=== PATIENT | female | born 1950 | race Caucasian/White ===

== ENCOUNTER 2016-05-01 11:33 | Outpatient (CLI) | payer MEDICARE ==
[~2016-05-01 11:33] MED LIST: AMBIEN10 MG PO; AMIT PO; AMOXICILLIN875 MG PO; ASPIRIN81 MG PO; BREO ELLIPTA 11 EACH INH; CARAFATE1 G PO; CENTRUM COMPLE1 EACH PO; ESTRACE2 MG PO; FLOVENT DI50 MCG/DIS INH; IBUPROFEN400 MG PO; IMITREX4 MG/0.5 M SQ; LOPRESSOR25 MG PO; MACROBID100 MG PO; NEURONTIN600 MG PO; NEXIUM40 MG PO; NORVASC5 MG PO; PERPHEN PO; PHENERGAN25 M1 PO; PRAVACHOL20 MG PO; REGLAN10 MG PO; SYNTHROID88 MCG PO; TESSALON PERLE100 MG PO; ULTRAM50 MG PO; UNITHROID112 MCG PO; ZESTRIL40 MG PO
[2016-05-01 12:42] LABS: BASOPHILS 0.3 % (0.0-2.0); EOSINOPHILS 0.1 % (0-7); HEMATOCRIT 42.8 % (36.0-48.0); HEMOGLOBIN 14.5 g/dL (12-16); IMMATURE GRANULOCYTES 1.1 % (0-5); LYMPHOCYTES 13.8 % (15-50); MCH 31.3 pg (26.0-34.0); MCHC 33.9 g/dL (31.0-37.0); MCV 92.2 fL (80.0-100.0); MEAN PLATELET VOLUME 7.8 fL (7.4-10.4); MONOCYTES 4.6 % (2-11); NEUTROPHILS 80.1 % (40-80); RBC 4.64 10x6/uL (4.00-5.40); RDW 12.5 % (11.5-14.5); WBC 15.1 10x3/uL (4.8-10.8)
[2016-05-01 12:56] LABS: ALKALINE PHOSPHATASE 66 U/L (46-116); ALT (SGPT) 27 U/L (10-68); CALC OSMOLALITY 267 mosm/kg (275-300); CALCIUM 9.2 mg/dL (8.5-10.1); CARBON DIOXIDE 26.7 mmol/L (21.0-32.0); CHLORIDE - SERUM 96 mmol/L (98-107); CREATININE - SERUM 0.9 mg/dL (0.6-1.3); GLUCOSE 115 mg/dL (74-106); POTASSIUM - SERUM 4.4 mmol/L (3.5-5.1); PROTEIN - SERUM 7.6 g/dL (6.4-8.2); SODIUM 132 mmol/L (136-145); UREA NITROGEN 18 mg/dL (7-18); eGFR NON AFRICAN AMERICAN 66 mL/min (90-120)
[2016-05-01 13:03] LABS: PLATELET COUNT 314 10x3/uL (130-400)
[2016-05-01 13:05] LABS: AMYLASE - SERUM 40 U/L (25-115); LIPASE 101 U/L (73-393); PRO BNP 158 pg/mL (0-125); THYROID STIMULATING HORMONE 10.25 uIU/mL (0.36-3.74)
[2016-05-01 13:06] LABS: TROPONIN-I < 0.017 ng/mL (0.000-0.060)
[2016-05-01 17:01] VITALS: BP 138/90; Ht 152.4 cm
== END 2016-05-01 17:00 | disposition home or self-care (01) ==
LOC: D.OPS 11:33 → D.ER 11:33 → EDSTATUS 14:25 → D.SDCHOLD 14:25 → D.OPS 17:00
PROVIDERS: Family Medicine
DX: K56.41 Fecal impaction (principal)

== ENCOUNTER → 2017-09-13 15:42 | Outpatient (CLI) | payer MEDICARE ==
[~2017-09-13 15:42] MED LIST changes: +NICODERM C1 PATCH .3 TRANSDERM; +PROTONIX40 MG PO
[2017-09-13 15:50] LABS: BASOPHILS 0.8 % (0-2); EOSINOPHILS 1.4 % (0-7); HEMATOCRIT 36.9 % (36.0-48.0); HEMOGLOBIN 12.3 g/dL (12-16); IMMATURE GRANULOCYTES 1.1 % (0-5); LYMPHOCYTES 34.8 % (15-50); MCH 33.5 pg (26.0-34.0); MCHC 33.3 g/dL (31.0-37.0); MCV 100.5 fL (80.0-100.0); MEAN PLATELET VOLUME 8.4 fL (7.4-10.4); MONOCYTES 7.1 % (2-11); NEUTROPHILS 54.8 % (40-80); PLATELET COUNT 279 10x3/uL (130-400); RBC 3.67 10x6/uL (4.00-5.40); RDW 12.5 % (11.5-14.5); WBC 10.6 10x3/uL (4.8-10.8)
[2017-09-13 16:03] LABS: APPEARANCE HAZY (CLEAR); BILIRUBIN NEGATIVE (NEGATIVE); COLOR YELLOW (YELLOW); GLUCOSE NEGATIVE (NEGATIVE); KETONE NEGATIVE (NEGATIVE); NITRITE NEGATIVE (NEGATIVE); PH 5.5 (5.0-6.0); PROTEIN NEGATIVE (NEGATIVE); UROBILINOGEN NORMAL (NORMAL)
[2017-09-13 16:07] LABS: ALBUMIN 2.9 g/dL (3.4-5.0); ALKALINE PHOSPHATASE 84 U/L (46-116); ALT (SGPT) 17 U/L (10-68); BILIRUBIN - TOTAL 0.16 mg/dL (0.2-1.3); CALC OSMOLALITY 272 mosm/kg (275-300); CALCIUM 8.4 mg/dL (8.5-10.1); CARBON DIOXIDE 29.4 mmol/L (21.0-32.0); CHLORIDE - SERUM 102 mmol/L (98-107); CREATININE - SERUM 0.8 mg/dL (0.6-1.3); GLUCOSE 89 mg/dL (74-106); PROTEIN - SERUM 6.4 g/dL (6.4-8.2); SODIUM 137 mmol/L (136-145); UREA NITROGEN 12 mg/dL (7-18); eGFR NON AFRICAN AMERICAN 76 mL/min (90-120)
== END | disposition home or self-care (01) ==
LOC: D.LABREF 15:42
PROVIDERS: Family Medicine
DX: R53.1 Weakness (principal); Z91.81 History of falling

== ENCOUNTER 2017-10-21 22:18 | Inpatient (IN) | payer MEDICARE ==
[~2017-10-21] VITALS: Ht 152.4 cm; Wt 72.6 kg
--- NOTE | ~2017-10-21 | EC ---
PATIENT:LILLIAM DEL CID DATE OF SERVICE: 10/22/17 SEX: F MEDICAL RECORD: [id number] DATE OF : [birth year] LOCATION:[facility] AGE OF PATIENT: 66 ADMISSION DATE: 10/22/17 REFERRING PHYSICIAN: INTERPRETING PHYSICIAN: ARNIE BOB MD ECHOCARDIOGRAM REPORT ECHO CHARGES 4 ECHO COMPLETE Date: 10/22 CLINICAL DIAGNOSIS: SYNCOPE ECHOCARDIOGRAPHIC MEASUREMENTS (adult normal given) AC root (d.<3.7cm) 3.2 cm LV Septum d (<1.2 cm> 1.9 cm Valve Excursion 1.8 cm LV Septum (systole) 2.3 cm Left Atria (s.<4.0cm> 3.9 cm LVPW d(<1.2cm) 1.5 cm RV (d.<2.3cm) 1.8 cm LVPW (sytole) 2.2 cm LV diastole(<5.6CM) 3.9 cm MV E-F(>70mm/sec) cm LV systole 1.8 cm LVOT Diameter 1.9 cm MV exc.(>10mm) cm Est.ejection fraction (50-75%) % DOPPLER: LVIT cm/sec A 85.0 cm/sec E 67.0 cm/sec LA cm/sec RVSP 25.3 mmHg LVOT 83.0 cm/sec AOP1/2T m/s Asc. Ao 121 cm/sec RVOT 134 cm/sec RA cm/sec PA 109 cm/sec AV Gradient Peak 6.0 mmHg AV Mean 3.5 mmHg AV Area 2.2 cm MV Gradient Peak 4.7 mmHg MV Mean 1.9 mmHg MV Area cm COMMENTS: Front Desk Person: Alysha GRUBBS Fitter Type Bar And Segment: Adam Corona TAPE# PACS Pericardial Effusion N DATE OF SERVICE: 10/24/2017 PROCEDURE: Echocardiogram. FINDINGS: 1. Left ventricular chamber size is within normal limits. Left ventricular systolic function is normal. Overall ejection fraction estimated at 60%. 2. Left atrium, right atrium, and right ventricular chamber sizes are within normal limits. 3. Valvular structures have normal structure and motion. ECHOCARDIOGRAM REPORT [id number] LILLIAM DEL CID 4. Doppler interrogation only reveals mild plus tricuspid regurgitation, no other valvular insufficiency or stenosis and pulmonary systolic pressure is normal estimated at 25 mmHg. 5. No evidence of pericardial effusion or left ventricular thrombus. TRANSINT:[id number] Voice Confirmation ID: [id number] DOCUMENT ID: [id number] ARNIE BOB MD at 1208 CC: [id number] DICTATION DATE: 10/24/17 1211 WASHING MACHINE MECHANIC: 10/24/17 1341 ADM IN [facility] [address] [place] [address]
[~2017-10-21 22:18] MED LIST changes: -NICODERM C1 PATCH .3 TRANSDERM; -PROTONIX40 MG PO
[2017-10-21 22:38] VITALS: BP 127/68
[2017-10-21 23:20] LABS: APPEARANCE HAZY (CLEAR); BILIRUBIN NEGATIVE (NEGATIVE); COLOR DK YELLOW (YELLOW); GLUCOSE NEGATIVE (NEGATIVE); KETONE NEGATIVE (NEGATIVE); NITRITE NEGATIVE (NEGATIVE); PROTEIN NEGATIVE (NEGATIVE); SPECIFIC GRAVITY 1.015 (1.005-1.020); UROBILINOGEN NORMAL (NORMAL)
[2017-10-21 23:20] LABS: HEMATOCRIT 45.5 % (36.0-48.0); HEMOGLOBIN 15.9 g/dL (12-16); MCHC 34.9 g/dL (31.0-37.0); MCV 97.4 fL (80.0-100.0); MEAN PLATELET VOLUME 8.4 fL (7.4-10.4); PLATELET COUNT 371 10x3/uL (130-400); RBC 4.67 10x6/uL (4.00-5.40); RDW 12.1 % (11.5-14.5); WBC 20.4 10x3/uL (4.8-10.8)
[2017-10-21 23:21] LABS: ALBUMIN 3.5 g/dL (3.4-5.0); ALKALINE PHOSPHATASE 147 U/L (46-116); ALT (SGPT) 19 U/L (10-68); BILIRUBIN - TOTAL 0.37 mg/dL (0.2-1.3); CALC OSMOLALITY 265 mosm/kg (275-300); CARBON DIOXIDE 23.5 mmol/L (21.0-32.0); CHLORIDE - SERUM 98 mmol/L (98-107); GLUCOSE 119 mg/dL (74-106); POTASSIUM - SERUM 3.8 mmol/L (3.5-5.1); PROTEIN - SERUM 7.1 g/dL (6.4-8.2); SODIUM 132 mmol/L (136-145); UREA NITROGEN 12 mg/dL (7-18); eGFR NON AFRICAN AMERICAN 58 mL/min (90-120)
[2017-10-21 23:24] LABS: BACTERIA MANY /hpf (NONE SEEN); EPITHELIAL CELLS 0-5 /hpf (0-5); HYALINE CAST 0-5 /lpf (NONE SEEN); RED CELLS - URINE 0-5 /hpf (0-5); WAXY CAST OCC /lpf (NONE SEEN); WHITE CELLS - URINE 0-5 /hpf (0-5)
[2017-10-21 23:33] LABS: AMYLASE - SERUM 133 U/L (25-115); CKMB 1.3 U/L (0.0-3.6); CREATINE KINASE 57 UL (21-215); LIPASE 79 U/L (73-393)
[2017-10-21 23:38] LABS: TROPONIN-I < 0.017 ng/mL (0.000-0.060)
[2017-10-21 23:56] VITALS: BP 112/74
[2017-10-22 00:08] LABS: LYMPHOCYTES 11 % (15-50); MONOCYTES 5 % (2-11); NEUTROPHILS 82 % (40-80); PLATELET ESTIMATE NORMAL
[2017-10-22 06:44] LABS: BASOPHILS 0.3 % (0-2); EOSINOPHILS 0.1 % (0-7); HEMOGLOBIN 15.8 g/dL (12-16); IMMATURE GRANULOCYTES 0.5 % (0-5); LYMPHOCYTES 12.6 % (15-50); MCH 33.3 pg (26.0-34.0); MCHC 34.3 g/dL (31.0-37.0); MCV 96.8 fL (80.0-100.0); MEAN PLATELET VOLUME 8.4 fL (7.4-10.4); MONOCYTES 8.8 % (2-11); NEUTROPHILS 77.7 % (40-80); PLATELET COUNT 384 10x3/uL (130-400); RBC 4.75 10x6/uL (4.00-5.40); RDW 12.2 % (11.5-14.5); WBC 15.4 10x3/uL (4.8-10.8)
[2017-10-22 07:06] LABS: ANION GAP 14.5 mmol/L (8-16); CARBON DIOXIDE 22.9 mmol/L (21.0-32.0); CREATININE - SERUM 0.9 mg/dL (0.6-1.3); MAGNESIUM - SERUM 1.6 mg/dL (1.8-2.4); POTASSIUM - SERUM 3.4 mmol/L (3.5-5.1)
[2017-10-22 16:30] VITALS: BP 143/65
[2017-10-22 19:48] VITALS: BP 151/80
[2017-10-22 20:18] VITALS: BMI 31.3
[2017-10-22 23:36] VITALS: BP 135/72
[2017-10-23 04:00] VITALS: BP 170/98
[2017-10-23 07:12] LABS: BASOPHILS 0.7 % (0-2); EOSINOPHILS 0.7 % (0-7); HEMATOCRIT 37.5 % (36.0-48.0); HEMOGLOBIN 12.7 g/dL (12-16); IMMATURE GRANULOCYTES 0.9 % (0-5); MCH 32.8 pg (26.0-34.0); MCHC 33.9 g/dL (31.0-37.0); MCV 96.9 fL (80.0-100.0); MEAN PLATELET VOLUME 8.4 fL (7.4-10.4); MONOCYTES 8.7 % (2-11); PLATELET COUNT 348 10x3/uL (130-400); RBC 3.87 10x6/uL (4.00-5.40); RDW 12.4 % (11.5-14.5)
[2017-10-23 07:22] LABS: CALCIUM 7.9 mg/dL (8.5-10.1); CARBON DIOXIDE 23.9 mmol/L (21.0-32.0); CHLORIDE - SERUM 107 mmol/L (98-107); GLUCOSE 83 mg/dL (74-106); SODIUM 142 mmol/L (136-145)
[2017-10-23 07:30] LABS: WBC 7.7 10x3/uL (4.8-10.8)
[2017-10-23 07:33] LABS: CALC OSMOLALITY 278 mosm/kg (275-300); CREATININE - SERUM 0.6 mg/dL (0.6-1.3); UREA NITROGEN 5 mg/dL (7-18); eGFR NON AFRICAN AMERICAN > 90 mL/min (90-120)
[2017-10-23 07:34] LABS: POTASSIUM - SERUM 2.8 mmol/L (3.5-5.1)
[2017-10-23 08:16] VITALS: BP 151/72
[2017-10-23 10:09] LABS: MAGNESIUM - SERUM 1.7 mg/dL (1.8-2.4); PHOSPHOROUS 2.2 mg/dL (2.5-4.9)
[2017-10-23 11:56] VITALS: BP 178/88
[2017-10-23 13:34] VITALS: Ht 152.4 cm; Wt 72.6 kg
[2017-10-23 16:28] VITALS: BP 168/58
[2017-10-23 20:23] VITALS: BP 181/87
[2017-10-24 04:00] VITALS: BP 132/68
[2017-10-24 07:55] LABS: BASOPHILS 0.7 % (0-2); EOSINOPHILS 0.9 % (0-7); HEMATOCRIT 34.5 % (36.0-48.0); HEMOGLOBIN 11.8 g/dL (12-16); IMMATURE GRANULOCYTES 0.8 % (0-5); MCH 32.7 pg (26.0-34.0); MCHC 34.2 g/dL (31.0-37.0); MCV 95.6 fL (80.0-100.0); MEAN PLATELET VOLUME 8.2 fL (7.4-10.4); MONOCYTES 7.8 % (2-11); NEUTROPHILS 57.8 % (40-80); PLATELET COUNT 336 10x3/uL (130-400); RBC 3.61 10x6/uL (4.00-5.40); RDW 12.2 % (11.5-14.5); WBC 8.4 10x3/uL (4.8-10.8)
[2017-10-24 08:13] LABS: CALCIUM 7.4 mg/dL (8.5-10.1); CARBON DIOXIDE 25.9 mmol/L (21.0-32.0); CHLORIDE - SERUM 107 mmol/L (98-107); GLUCOSE 80 mg/dL (74-106); SODIUM 141 mmol/L (136-145)
[2017-10-24 08:26] LABS: CALC OSMOLALITY 275 mosm/kg (275-300); CREATININE - SERUM 0.4 mg/dL (0.6-1.3); eGFR NON AFRICAN AMERICAN > 90 mL/min (90-120)
[2017-10-24 08:27] LABS: POTASSIUM - SERUM 2.9 mmol/L (3.5-5.1)
[2017-10-24 08:33] LABS: UREA NITROGEN 0 mg/dL (7-18)
[2017-10-24 08:43] VITALS: BP 162/80
[2017-10-24 12:08] VITALS: BP 167/85
[2017-10-24 16:23] VITALS: BP 130/76
[2017-10-24 17:04] LABS: MAGNESIUM - SERUM 1.2 mg/dL (1.8-2.4); PHOSPHOROUS 1.6 mg/dL (2.5-4.9)
[2017-10-24 21:03] VITALS: BP 196/92
[2017-10-25 01:03] VITALS: BP 132/73
[2017-10-25 04:00] VITALS: BP 168/79
[2017-10-25 06:44] LABS: BASOPHILS 0.5 % (0-2); EOSINOPHILS 1.2 % (0-7); HEMATOCRIT 37.4 % (36.0-48.0); HEMOGLOBIN 12.8 g/dL (12-16); IMMATURE GRANULOCYTES 0.8 % (0-5); LYMPHOCYTES 20.5 % (15-50); MCH 32.9 pg (26.0-34.0); MCHC 34.2 g/dL (31.0-37.0); MCV 96.1 fL (80.0-100.0); MEAN PLATELET VOLUME 8.4 fL (7.4-10.4); MONOCYTES 7.2 % (2-11); NEUTROPHILS 69.8 % (40-80); PLATELET COUNT 354 10x3/uL (130-400); RBC 3.89 10x6/uL (4.00-5.40); RDW 12.4 % (11.5-14.5)
[2017-10-25 07:30] LABS: CALC OSMOLALITY 275 mosm/kg (275-300); CHLORIDE - SERUM 105 mmol/L (98-107); CREATININE - SERUM 0.5 mg/dL (0.6-1.3); GLUCOSE 79 mg/dL (74-106); MAGNESIUM - SERUM 1.1 mg/dL (1.8-2.4); PHOSPHOROUS 1.6 mg/dL (2.5-4.9); SODIUM 141 mmol/L (136-145); UREA NITROGEN 0 mg/dL (7-18); eGFR NON AFRICAN AMERICAN > 90 mL/min (90-120)
[2017-10-25 08:52] VITALS: BP 162/82
[2017-10-25] MEDS ORDERED: NICODERM C1 PATCH .3 TRANSDERM (11:18)
[2017-10-25] MEDS ORDERED: PROTONIX40 MG PO (11:21)
[2017-10-25 12:09] VITALS: BP 93/69
== END 2017-10-25 14:13 | disposition home or self-care (01) | DRG 312 ==
LOC: D.ER 22:18 → D.EDHOLD 10-22 04:32 → OBSVTIME 10-22 04:32 → D.MS 10-22 04:32
PROVIDERS: Family Medicine; Family Medicine Adult Medicine; Internal Medicine Gastroenterology; Internal Medicine Nephrology
PROC: 0DBP8ZZ Excision of Rectum, Via Natural or Artificial Opening Endoscopic (ICD-10-PCS; 2017-10-24)
PROC: 0DBN8ZZ Excision of Sigmoid Colon, Via Natural or Artificial Opening Endoscopic (ICD-10-PCS; 2017-10-24)
PROC: 0DBM8ZX Excision of Descending Colon, Via Natural or Artificial Opening Endoscopic, Diagnostic (ICD-10-PCS; principal; 2017-10-24 17:15)
DX: R55 Syncope and collapse (principal); F17.203 Nicotine dependence unspecified, with withdrawal; N39.0 Urinary tract infection, site not specified; K63.3 Ulcer of intestine; E86.0 Dehydration; I10 Essential (primary) hypertension; J44.9 Chronic obstructive pulmonary disease, unspecified; E87.6 Hypokalemia; E83.42 Hypomagnesemia; T50.995A Adverse effect of other drugs, medicaments and biological substances, initial encounter; K59.00 Constipation, unspecified; E03.9 Hypothyroidism, unspecified; G62.9 Polyneuropathy, unspecified; D72.829 Elevated white blood cell count, unspecified; R93.5 Abnormal findings on diagnostic imaging of other abdominal regions, including retroperitoneum; K58.9 Irritable bowel syndrome, unspecified; K63.5 Polyp of colon; K62.1 Rectal polyp

== ENCOUNTER 2018-02-13 16:47 | Observation (INO) | payer MEDICARE ==
[~2018-02-13] VITALS: Ht 152.4 cm; Wt 81.8 kg
[~2018-02-13 16:47] MED LIST changes: +NICODERM C1 PATCH .3 TRANSDERM; +PROTONIX40 MG PO
[2018-02-13 18:27] LABS: BASOPHILS 0.4 % (0-2); EOSINOPHILS 0.2 % (0-7); HEMATOCRIT 42.3 % (36.0-48.0); HEMOGLOBIN 14.8 g/dL (12-16); IMMATURE GRANULOCYTES 0.8 % (0-5); LYMPHOCYTES 17.9 % (15-50); MCV 94.2 fL (80.0-100.0); MEAN PLATELET VOLUME 8.5 fL (7.4-10.4); NEUTROPHILS 73.7 % (40-80); PLATELET COUNT 295 10x3/uL (130-400); RBC 4.49 10x6/uL (4.00-5.40); RDW 12.7 % (11.5-14.5); WBC 12.5 10x3/uL (4.8-10.8)
[2018-02-13 18:50] LABS: ALBUMIN 3.3 g/dL (3.4-5.0); ALKALINE PHOSPHATASE 100 U/L (46-116); ALT (SGPT) 22 U/L (10-68); BILIRUBIN - TOTAL 0.38 mg/dL (0.2-1.3); CALC OSMOLALITY 266 mosm/kg (275-300); CALCIUM 9.5 mg/dL (8.5-10.1); CARBON DIOXIDE 24.5 mmol/L (21.0-32.0); CHLORIDE - SERUM 100 mmol/L (98-107); CKMB 6.4 U/L (0.0-3.6); CREATINE KINASE 434 UL (21-215); CREATININE - SERUM 0.9 mg/dL (0.6-1.3); GLUCOSE 107 mg/dL (74-106); PROTEIN - SERUM 7.3 g/dL (6.4-8.2); SODIUM 134 mmol/L (136-145); TROPONIN-I < 0.017 ng/mL (0.000-0.060); UREA NITROGEN 10 mg/dL (7-18); eGFR NON AFRICAN AMERICAN 66 mL/min (90-120)
[2018-02-13 19:34] LABS: POTASSIUM - SERUM 2.6 mmol/L (3.5-5.1)
[2018-02-13 22:58] VITALS: BP 166/101
[2018-02-14 01:05] VITALS: BP 139/78
[2018-02-14 02:47] VITALS: BP 139/78; Ht 152.4 cm; Wt 81.8 kg
[2018-02-14 05:01] LABS: BASOPHILS 0.4 % (0-2); EOSINOPHILS 0.7 % (0-7); HEMATOCRIT 42.2 % (36.0-48.0); HEMOGLOBIN 14.5 g/dL (12-16); IMMATURE GRANULOCYTES 0.7 % (0-5); LYMPHOCYTES 24.5 % (15-50); MCH 32.7 pg (26.0-34.0); MCHC 34.4 g/dL (31.0-37.0); MEAN PLATELET VOLUME 8.5 fL (7.4-10.4); MONOCYTES 9.4 % (2-11); NEUTROPHILS 64.3 % (40-80); PLATELET COUNT 301 10x3/uL (130-400); RBC 4.44 10x6/uL (4.00-5.40); RDW 12.8 % (11.5-14.5); WBC 10.5 10x3/uL (4.8-10.8)
[2018-02-14 05:18] LABS: ALBUMIN 2.9 g/dL (3.4-5.0); BILIRUBIN - TOTAL 0.36 mg/dL (0.2-1.3); CALCIUM 8.8 mg/dL (8.5-10.1); CARBON DIOXIDE 24.3 mmol/L (21.0-32.0); CREATININE - SERUM 0.9 mg/dL (0.6-1.3); PROTEIN - SERUM 6.5 g/dL (6.4-8.2)
[2018-02-14 05:20] LABS: ANION GAP 15.3 mmol/L (8-16); POTASSIUM - SERUM 3.6 mmol/L (3.5-5.1)
[2018-02-14 05:23] LABS: APPEARANCE CLOUDY (CLEAR); BILIRUBIN NEGATIVE (NEGATIVE); COLOR YELLOW (YELLOW); GLUCOSE NEGATIVE (NEGATIVE); KETONE MODERATE mg/dL (NEGATIVE); NITRITE NEGATIVE (NEGATIVE); PROTEIN 1+ mg/dL (NEGATIVE); SPECIFIC GRAVITY 1.015 (1.005-1.020); UROBILINOGEN NORMAL (NORMAL)
[2018-02-14 05:24] LABS: BACTERIA MANY /hpf (NONE SEEN); EPITHELIAL CELLS 0-5 /hpf (0-5); RED CELLS - URINE NONE SEEN /hpf (0-5); WHITE CELLS - URINE 0-5 /hpf (0-5)
[2018-02-14 05:39] LABS: UDS - AMPHET NEGATIVE QUAL (NEGATIVE); UDS - BARB NEGATIVE QUAL (NEGATIVE); UDS - BENZO NEGATIVE QUAL (NEGATIVE); UDS - COCAINE NEGATIVE QUAL (NEGATIVE); UDS - OPIATE POSITIVE QUAL (NEGATIVE); UDS - PCP NEGATIVE QUAL (NEGATIVE); UDS - THC NEGATIVE QUAL (NEGATIVE)
[2018-02-14 06:35] VITALS: BP 96/56
[2018-02-14 08:15] VITALS: BP 160/82
== END 2018-02-14 11:05 | disposition left against medical advice (07) ==
LOC: D.MS 16:47 → OBSVTIME 16:53 → D.MS 02-14 11:05
PROVIDERS: Family Medicine
DX: E86.0 Dehydration (principal); E87.6 Hypokalemia

== ENCOUNTER → 2018-02-22 17:27 | Outpatient (CLI) | payer MEDICARE ==
[2018-02-14 02:47] VITALS: BMI 35.2
[2018-02-22 17:55] LABS: APPEARANCE CLEAR (CLEAR); BILIRUBIN NEGATIVE (NEGATIVE); COLOR YELLOW (YELLOW); GLUCOSE NEGATIVE (NEGATIVE); KETONE NEGATIVE (NEGATIVE); NITRITE NEGATIVE (NEGATIVE); PROTEIN NEGATIVE (NEGATIVE); UROBILINOGEN NORMAL (NORMAL)
[2018-02-22 17:59] LABS: ANION GAP 12.7 mmol/L (8-16); CREATININE - SERUM 0.9 mg/dL (0.6-1.3); POTASSIUM - SERUM 3.7 mmol/L (3.5-5.1)
== END | disposition home or self-care (01) ==
LOC: D.LABREF 17:27
PROVIDERS: Family Medicine
DX: E87.6 Hypokalemia (principal); N39.0 Urinary tract infection, site not specified

== ENCOUNTER → 2018-05-03 13:49 | Outpatient (CLI) | payer MEDICARE ==
[2018-02-14 02:47] VITALS: BMI 35.2
== END | disposition home or self-care (01) ==
LOC: D.MRI 04-17 13:00
DX: G93.5 Compression of brain (principal)